=== PATIENT | male | born 1945 | race Caucasian/White ===

== ENCOUNTER 2024-09-22 14:10 | Outpatient (CLI) | payer MEDICARE ==
--- NOTE | 2024-09-22 18:59 | RADIOLOGY REPORT ---
PROCEDURE: MR MRI LUMBAR SPINE Indication: LOOSE HARDWARE, T12 fusion break. COMPARISON: None TECHNIQUE: Multiplanar multisequence images of the the thoracic and lumbar lumbar spine are obtained. FINDINGS: For the purpose of this examination, there are 5 lumbar vertebral body types counting from the lumbos acral junction. There is posterior fusion hardware at T10 through L2. This results in susceptibility artifact, limiti ng evaluation. No definitive edema signal surrounding the hardware. Chronic appearing T12 wedge-shaped compression deformity with 60% loss height anteriorly and 3 mm ret ropulsion. The remaining thoracic heights are maintained. There is moderate thoracic multilevel disc space narrowing. There is no high-grade thoracic spinal canal stenosis. The thoracic cord is normal in morphology and signal. The lumbar vertebral body heights are maintained. There is moderate lumbar multilevel disc space muna rowing and desiccation. There are multiple lumbar vertebral body hemangiomas. 8 mm STIR bright lesion within the T5 vertebral body. T12-L1: Small disc protrusion. Gsmp-yo-gnujoesa facet and flavum hypertrophy. No spinal canal stenos is. Mild bilateral neural foraminal stenosis. L1-2: Small disc protrusion. Zvqy-kw-wwyyiwce facet and flavum hypertrophy. No spinal canal stenosis . Mild bilateral neural foraminal stenosis. L2-3: 2 mm disc protrusion. Dpnt-ib-lspqsjgn facet and flavum hypertrophy. Thecal sac measures 7 mm AP. Teih-yk-ektgqvoh spinal canal stenosis. Moderate bilateral neural foraminal stenosis, right-grea lwq-ouej-wekb. L3-4: 2 mm disc protrusion. Moderate facet and flavum hypertrophy. No spinal canal stenosis. Mild-to -moderate bilateral neural foraminal stenosis. L4-5: 3 mm disc protrusion. Moderate to severe facet and flavum hypertrophy no spinal canal stenosis . Moderate to severe right and moderate left neural foraminal stenosis. L5-S1: 3 mm disc protrusion. Moderate facet and flavum hypertrophy. No spinal canal stenosis. Modera te bilateral neural foraminal stenosis. IMPRESSION: Posterior fusion hardware at T10 through L2. This results in susceptibility artifact, limiting evalu ation. If there is concern for loose hardware / fracture, recommend repeating CT of the thoracolumba r spine to evaluate. No definitive edema signal surrounding the hardware on MRI. T12 wedge-shaped compression fracture deformity with 60% loss height and 3 mm retropulsion. Moderate lumbar degenerative disc disease. Ltzs-ie-etjpsjgz spinal canal stenosis L2-3. Multilevel lumbar moderate to severe neural foraminal stenosis as described. No thoracic spinal canal stenosis. 8 mm STIR bright lesion within the T5 vertebral body. This can represent a hemangioma however other l esions can not be ruled out including malignancy/ metastatic disease. Recommend follow-up imaging to ensure stability. Correlate with clinical risk factors as well.
== END 2024-09-22 23:59 | disposition home or self-care (01) ==
LOC: MRI02 14:10
PROVIDERS: ATTEND Family Medicine
DX: S22.080A Wedge compression fracture of T11-T12 vertebra, initial encounter for closed fracture (principal); T84.226A Displacement of internal fixation device of vertebrae, initial encounter; M54.50 Low back pain, unspecified; M48.061 Spinal stenosis, lumbar region without neurogenic claudication; M48.05 Spinal stenosis, thoracolumbar region; M47.815 Spondylosis without myelopathy or radiculopathy, thoracolumbar region; M51.369 Other intervertebral disc degeneration, lumbar region without mention of lumbar back pain or lower extremity pain; X58.XXXA Exposure to other specified factors, initial encounter; Y93.89 Activity, other specified; Y92.89 Other specified places as the place of occurrence of the external cause; Y99.8 Other external cause status
CPT/HCPCS: 70551; 72146; 72148

== ENCOUNTER 2024-12-05 10:33 | Outpatient (CLI) | payer MEDICARE ==
--- NOTE | 2024-12-05 15:16 | RADIOLOGY REPORT ---
EXAM: CT CT T L SPINE HISTORY: PSEUDOARTHROSIS OF LUMBAR SPINE COMPARISON: MR MRI LUMBAR SPINE on DOS: 09/22/24, MR MRI THORACIC SPINE on DOS: 09/22/24 CTDIvol 32.5 mGy, DLP 2110.0 mGy*cm. TECHNIQUE: Multiple axial CT images of the spine were obtained using bone algorithm. Axial and coronal reformatting was done. Bone and soft tissue windows were reviewed. FINDINGS: No evidence of definite acute fracture, spinal dislocation, or significant appearing acute subluxation is seen. Multilevel thoracolumbar spinal fixation hardware extending from T10-L2 with associated kyphoplasty changes. Chronic appearing moderate compression fracture of the T12 vertebral body. Moderate canal stenosis at T11-T12. Moderate canal stenosis at L2-L3. Severe canal stenosis at L3-L4, L4-L5. Partially imaged distended urinary bladder. IMPRESSION: No definite CT evidence of acute fracture or dislocation of the bony thoracic and lumbar spine.
== END 2024-12-05 23:59 | disposition home or self-care (01) ==
LOC: RAD 10:33
PROVIDERS: ATTEND Orthopaedic Surgery
DX: S22.080K Wedge compression fracture of T11-T12 vertebra, subsequent encounter for fracture with nonunion (principal); S32.009K Unspecified fracture of unspecified lumbar vertebra, subsequent encounter for fracture with nonunion; X58.XXXD Exposure to other specified factors, subsequent encounter; M43.25 Fusion of spine, thoracolumbar region; M48.05 Spinal stenosis, thoracolumbar region
CPT/HCPCS: 72128; 72131